=== PATIENT | male | born 1980 | race Two or more races ===

== ENCOUNTER 2016-12-25 09:34 | Emergency (ER) | payer SELFPAY ==
[~2016-12-25] VITALS: Ht 162.6 cm; Wt 56.2 kg
[2016-12-25] MEDS ORDERED: LORAZEPAM INJ 2 MG/ML VIAL ONE (09:36)
[2016-12-25] MEDS ORDERED: HALOPERIDOL LACTATE INJ 5 MG/ML VIAL ONE (09:36)
[2016-12-25] MEDS ORDERED: WATER FOR INJECTION,STERILE 10 ML ONE (09:45)
[2016-12-25] MEDS ORDERED: OLANZAPINE 10 MG VIAL IM ONE ×2 (09:45→10:00)
[2016-12-25] MEDS ORDERED: HALOPERIDOL LACTATE INJ 5 MG/ML VIAL IM ONE (10:00)
[2016-12-25] MEDS ORDERED: LORAZEPAM INJ 2 MG/ML VIAL IM ONE (10:00)
[2016-12-25 10:26] LABS: BASOPHILS % (AUTO) 0.1 % (0.0-2.0); DIFF TOTAL % 100 %; HEMATOCRIT 50 % (39-51); HEMOGLOBIN 16.6 g/dL (13.5-17.5); LYMPHOCYTES # (AUTO) 0.6 /CMM (0.8-4.8); LYMPHOCYTES % (AUTO) 2.7 % (20.0-44.0); MEAN CORPUSCULAR HEMOGLOBIN 29 PG (26.0-33.0); MEAN CORPUSCULAR HGB CONC 33 g/dl (31.0-36.0); MEAN CORPUSCULAR VOLUME 88 fL (80-96); MONOCYTES # (AUTO) 1.1 /CMM (0.1-1.30); NEUTROPHILS # (AUTO) 19.4 /CMM (1.8-8.9); NEUTROPHILS % (AUTO) 92.2 % (43.0-81.0); PLATELET COUNT (AUTO) 325 /CMM (150-450); RED BLOOD CELL COUNT(AUTO) 5.64 MIL/uL (4.5-6.0); WHITE BLOOD COUNT (AUTO) 21.1 K/uL (4.3-11.0)
[2016-12-25 10:38] LABS: ANION GAP 35 (5-14); CALCIUM, SERUM 10.3 mg/dL (8.5-10.1); CARBON DIOXIDE 12 mmol/L (21-32); CHLORIDE 102 mmol/L (98-107); CREATININE 2.8 mg/dL (0.6-1.3); GFR 26 mL/min (>60); GLUCOSE 159 mg/dL (74-106); POTASSIUM 3.8 mmol/L (3.5-5.1); SODIUM SERUM 145 mmol/L (136-145); UREA NITROGEN, BLOOD 11 mg/dL (7-18)
[2016-12-25 10:43] LABS: ALBUMIN 4.9 g/dL (3.4-5.0); BILIRUBIN,DIRECT 0.2 mg/dL (0.0-0.2); BILIRUBIN,TOTAL 0.9 mg/dL (0.2-1.0); INDIRECT BILIRUBIN 0.7 mg/dL (0.0-1.1)
[2016-12-25 10:45] LABS: ACETAMINOPHEN 0 ug/ml (10-30); SALICYLATE 2.7 mg/dL (2.8-20.0)
[2016-12-25 11:07] LABS: ALANINE AMINOTRANSFERASE 24 U/L (12-78); ASPARTATE AMINOTRANSFERASE 21 U/L (15-37)
[2016-12-25 13:55] VITALS: BP 127/65
== END 2016-12-25 13:58 | disposition home or self-care (01) ==
LOC: ER 09:36
DX: F29 Unspecified psychosis not due to a substance or known physiological condition (principal); R51 Headache
CPT/HCPCS: 36415; 70450; 80048; 80076; 80329; 85025; 96372 ×3; 99291; A4606; G0480 ×2; J1630; J2060; J3490; Z7610; G6039-TC